=== PATIENT | male | born 1950 | race African-American/Black ===

== ENCOUNTER 2017-06-18 18:05 | Inpatient (IN) | payer MEDICARE, MEDICAID ==
[~2017-06-18] VITALS: Ht 170.2 cm; Wt 86.2 kg
[2017-06-18] MEDS ORDERED: ACETAMINOPHEN 325MG TABLET PO STA (18:20)
[2017-06-18] MEDS ORDERED: SODIUM CHLORIDE 0.9% 1000ML BAG (SEPSIS BOLUS) IV ONE (18:30)
[2017-06-18 18:53] LABS: HEMATOCRIT. 44.3 % (42.0-52.0); HEMOGLOBIN. 14.8 g/dL (14.0-18.0); MEAN CORPUSCULAR HEMOGLOBIN 28.8 pg (28.0-32.0); MEAN CORPUSCULAR VOLUME 85.9 fL (80.0-94.0); MEAN PLATELET VOLUME 8.5 fl (7.4-10.4); PLATELET 226 x1000/uL (130-400); RED BLOOD CELL COUNT 5.16 mill/uL (4.7-6.1); RED CELL DISTRIBUTION WIDTH 15.7 % (11.6-14.6)
[2017-06-18 18:55] LABS: CHLORIDE 100 mEq/L (98-107)
[2017-06-18 18:57] LABS: INR 1.3; PROTHROMBIN TIME 13.5 sec (9.4-11.6)
[2017-06-18 19:35] LABS: PLATELET ESTIMATE NORMAL
[2017-06-18] MEDS ORDERED: CEFTRIAXONE 1 G PREMIX 50 ML IV ONE (19:45)
[2017-06-18] MEDS ORDERED: AZITHROMYCIN 500 MG in DEXT 5% WATER 250 ML IV ONE (19:45)
[2017-06-18 20:30] LABS: CLARITY URINE CLEAR (CLEAR); COLOR URINE DARK YELLOW (YELLOW); KETONES URINE NEGATIVE (NEGATIVE); LEUKOCYTE ESTERASE URINE NEGATIVE (NEGATIVE); NITRITE URINE NEGATIVE (NEGATIVE); OCCULT BLOOD URINE 1+ (NEGATIVE); PROTEIN URINE 2+ (NEGATIVE); SPECIFIC GRAVITY URINE 1.021 (1.005-1.030)
[2017-06-18] MEDS ORDERED: MAGNESIUM/ALUMINUM HYDROXIDE/SIMETHICONE 30ML UDC PO PRN (20:45)
[2017-06-18] MEDS ORDERED: LEVOFLOXACIN 500MG PREMIX 100 ML IV SCH (20:45)
[2017-06-18] MEDS ORDERED: ONDANSETRON HCL 4MG/2ML VIAL IV PRN (20:45)
[2017-06-18] MEDS ORDERED: MAGNESIUM HYDROXIDE 400MG/5ML 30ML UDC PO PRN (20:45)
[2017-06-18] MEDS ORDERED: ACETAMINOPHEN 325MG TABLET PO PRN (20:45)
[2017-06-18] MEDS ORDERED: GUAIFENESIN 200MG/10ML SUGAR FREE UDC PO PRN (20:45)
[2017-06-18] MEDS ORDERED: IPRATROPIUM/ALBUTEROL 0.5-3(2.5)MG/3ML NEB HHN SCH (20:45)
[2017-06-18] MEDS ORDERED: TEMAZEPAM 15MG CAPSULE PO PRN (20:45)
[2017-06-18] MEDS ORDERED: DIPHENHYDRAMINE 50MG/ML VIAL IV PRN (20:45)
[2017-06-18] MEDS ORDERED: CLONIDINE 0.1MG TABLET PO PRN (20:45)
[2017-06-18] MEDS ORDERED: ALBUTEROL (0.083%) 2.5MG/3ML NEB HHN ONE (22:00)
[2017-06-19] VITALS (10 sets, daily range): BP systolic 114–134; BP diastolic 63–91
[2017-06-19] MEDS ORDERED: HYDROCODONE/APAP 7.5/325MG 1 TAB TABLET PO PRN
[2017-06-19] MEDS ORDERED: METHYLPREDNISOLONE SOD SUCC 125 MG/2 ML VIAL IV SCH (01:46)
[2017-06-19] MEDS: IPRATROPIUM/ALBUTEROL 0.5-3(2.5)MG/3ML NEB INH PRN ×2 (02:06→10:00)
[2017-06-19] MEDS ORDERED: ENOXAPARIN 40MG/0.4ML SYR SUBCUT SCH ×2 (09:00→14:45)
[2017-06-19] MEDS ORDERED: LEVOFLOXACIN 500MG PREMIX 100 ML IV SCH (10:00)
[2017-06-19] MEDS ORDERED: PROMETHAZINE/DEXTROMETHORPHAN 6.25-15MG/5ML BOTTLE 120ML PO PRN (12:00)
[2017-06-19] MEDS: FAMOTIDINE 20MG TABLET PO SCH (12:47)
[2017-06-19] MEDS: GUAIFENESIN 600MG ER TABLET PO SCH ×2 (12:47→20:07)
[2017-06-19] MEDS: LEVOFLOXACIN 500MG PREMIX 100 ML IV SCH (12:48)
[2017-06-19] MEDS: IPRATROPIUM/ALBUTEROL 0.5-3(2.5)MG/3ML NEB HHN SCH ×3 (13:12→21:01)
[2017-06-19] MEDS: SODIUM CHLORIDE 0.9% INJ 3ML FLUSH IVF SCH ×2 (16:04→21:34)
[2017-06-19 16:46] LABS: HEMATOCRIT. 41.4 % (42.0-52.0); HEMOGLOBIN. 13.7 g/dL (14.0-18.0); MEAN CORPUSCULAR HEMOGLOBIN 28.6 pg (28.0-32.0); MEAN CORPUSCULAR VOLUME 86.5 fL (80.0-94.0); MEAN PLATELET VOLUME 9.5 fl (7.4-10.4); PLATELET 195 x1000/uL (130-400); RED BLOOD CELL COUNT 4.79 mill/uL (4.7-6.1); RED CELL DISTRIBUTION WIDTH 15.4 % (11.6-14.6)
[2017-06-19 16:52] LABS: CHLORIDE 105 mEq/L (98-107)
[2017-06-19] MEDS: METHYLPREDNISOLONE SOD SUCC 40 MG/ML VIAL IV SCH (17:49)
[2017-06-19 19:41] LABS: PLATELET ESTIMATE NORMAL
[2017-06-19] MEDS: ENOXAPARIN 80MG/0.8ML SYR SUBCUT SCH (23:00)
[2017-06-20] VITALS (12 sets, daily range): BP systolic 115–139; BP diastolic 69–98
[2017-06-20] MEDS: IPRATROPIUM/ALBUTEROL 0.5-3(2.5)MG/3ML NEB HHN SCH ×7 (00:14→23:49)
[2017-06-20] MEDS: SODIUM CHLORIDE 0.9% INJ 3ML FLUSH IVF SCH ×3 (05:18→22:37)
[2017-06-20] MEDS: GUAIFENESIN 600MG ER TABLET PO SCH ×2 (08:29→22:37)
[2017-06-20] MEDS: METHYLPREDNISOLONE SOD SUCC 40 MG/ML VIAL IV SCH ×2 (08:29→17:28)
[2017-06-20] MEDS: FAMOTIDINE 20MG TABLET PO SCH (08:29)
[2017-06-20] MEDS: ENOXAPARIN 80MG/0.8ML SYR SUBCUT SCH ×2 (12:36→22:38)
[2017-06-20] MEDS: LEVOFLOXACIN 500MG PREMIX 100 ML IV SCH (12:37)
[2017-06-20 19:53] LABS: HEMATOCRIT. 41.9 % (42.0-52.0); HEMOGLOBIN. 13.5 g/dL (14.0-18.0); MEAN CORPUSCULAR HEMOGLOBIN 27.6 pg (28.0-32.0); MEAN CORPUSCULAR VOLUME 85.9 fL (80.0-94.0); MEAN PLATELET VOLUME 8.9 fl (7.4-10.4); PLATELET 227 x1000/uL (130-400); RED BLOOD CELL COUNT 4.88 mill/uL (4.7-6.1); RED CELL DISTRIBUTION WIDTH 15.4 % (11.6-14.6)
[2017-06-20 20:03] LABS: CHLORIDE 106 mEq/L (98-107)
[2017-06-20] MEDS: BUDESONIDE 0.5MG/2ML NEB HHN SCH (20:35)
[2017-06-20 22:15] LABS: PLATELET ESTIMATE NORMAL
[2017-06-21] VITALS (11 sets, daily range): BP systolic 104–150; BP diastolic 62–92
[2017-06-21] MEDS: IPRATROPIUM/ALBUTEROL 0.5-3(2.5)MG/3ML NEB HHN SCH ×5 (04:54→20:47)
[2017-06-21] MEDS: SODIUM CHLORIDE 0.9% INJ 3ML FLUSH IVF SCH ×3 (05:41→21:47)
[2017-06-21] MEDS: BUDESONIDE 0.5MG/2ML NEB HHN SCH ×2 (08:16→20:47)
[2017-06-21] MEDS ORDERED: IOHEXOL-350 100 ML BOTTLE ONE (10:23)
[2017-06-21] MEDS: FAMOTIDINE 20MG TABLET PO SCH (10:57)
[2017-06-21] MEDS: GUAIFENESIN 600MG ER TABLET PO SCH ×2 (10:57→21:46)
[2017-06-21] MEDS: ENOXAPARIN 80MG/0.8ML SYR SUBCUT SCH ×2 (10:58→21:46)
[2017-06-21] MEDS: METHYLPREDNISOLONE SOD SUCC 40 MG/ML VIAL IV SCH ×2 (10:58→17:10)
[2017-06-21] MEDS: LEVOFLOXACIN 500MG PREMIX 100 ML IV SCH (11:01)
[2017-06-22] VITALS (11 sets, daily range): BP systolic 109–133; BP diastolic 71–91
[2017-06-22] MEDS: IPRATROPIUM/ALBUTEROL 0.5-3(2.5)MG/3ML NEB HHN SCH ×6 (01:10→20:50)
[2017-06-22] MEDS: SODIUM CHLORIDE 0.9% INJ 3ML FLUSH IVF SCH ×2 (05:57→14:00)
[2017-06-22] MEDS: FAMOTIDINE 20MG TABLET PO SCH (09:15)
[2017-06-22] MEDS: GUAIFENESIN 600MG ER TABLET PO SCH ×2 (09:15→20:36)
[2017-06-22] MEDS: METHYLPREDNISOLONE SOD SUCC 40 MG/ML VIAL IV SCH ×2 (09:15→16:59)
[2017-06-22] MEDS: ENOXAPARIN 80MG/0.8ML SYR SUBCUT SCH ×2 (12:16→22:55)
[2017-06-22] MEDS: LEVOFLOXACIN 500MG TABLET PO SCH (12:16)
[2017-06-22] MEDS: BUDESONIDE 0.5MG/2ML NEB HHN SCH ×2 (12:20→20:51)
[2017-06-23] VITALS (9 sets, daily range): BP systolic 112–140; BP diastolic 67–96
[2017-06-23] MEDS: IPRATROPIUM/ALBUTEROL 0.5-3(2.5)MG/3ML NEB HHN SCH ×5 (00:42→15:49)
[2017-06-23] MEDS: BUDESONIDE 0.5MG/2ML NEB HHN SCH (07:59)
[2017-06-23] MEDS: FAMOTIDINE 20MG TABLET PO SCH (08:31)
[2017-06-23] MEDS: METHYLPREDNISOLONE SOD SUCC 40 MG/ML VIAL IV SCH (08:31)
[2017-06-23] MEDS: GUAIFENESIN 600MG ER TABLET PO SCH (08:31)
[2017-06-23] MEDS: LEVOFLOXACIN 500MG TABLET PO SCH (12:26)
[2017-06-23] MEDS: ENOXAPARIN 80MG/0.8ML SYR SUBCUT SCH (12:27)
== END 2017-06-23 16:30 | disposition home or self-care (01) | DRG 871 ==
LOC: ER 18:36 → 5EST 19:47 → EDBEDREQ 06-19 07:27 → EDBEDREQSVC 06-19 07:27 → ENRESERV 06-19 09:52
PROVIDERS: ADMIT Internal Medicine; ATTEND Internal Medicine
DX: A41.9 Sepsis, unspecified organism (principal); I26.99 Other pulmonary embolism without acute cor pulmonale; E44.0 Moderate protein-calorie malnutrition; I82.431 Acute embolism and thrombosis of right popliteal vein; J18.9 Pneumonia, unspecified organism; J44.0 Chronic obstructive pulmonary disease with (acute) lower respiratory infection; J44.1 Chronic obstructive pulmonary disease with (acute) exacerbation; E87.1 Hypo-osmolality and hyponatremia; Z68.29 Body mass index [BMI] 29.0-29.9, adult; Z87.891 Personal history of nicotine dependence; Z79.899 Other long term (current) drug therapy
CPT/HCPCS: 36415; 71045; 71275; 80048; 80053; 81003; 83605; 85025; 85610; 87040; 93005; 93970; 94640; 96365; 96367; 96375; 99291; A6261; J0456; J0696; J1650; J1956; J2920; J2930; J7030; J7040; J7060; J7611; J7620; J7626; Q9967